=== PATIENT | female | born 1945 ===

== ENCOUNTER → 2021-12-24 10:57 | Outpatient (BNVA) | payer MEDICARE, SELFPAY | PROVIDERS: PCP Internal Medicine; Visit Provider Psychiatry & Neurology Neurology | DX: G47.9 Sleep disorder, unspecified (principal); G31.84 Mild cognitive impairment of uncertain or unknown etiology | CPT/HCPCS: 99212 ==

== ENCOUNTER → 2022-05-13 11:03 | Outpatient (BNVA) | payer MEDICARE, SELFPAY | PROVIDERS: PCP Internal Medicine; Visit Provider Psychiatry & Neurology Neurology | DX: G31.84 Mild cognitive impairment of uncertain or unknown etiology (principal); M54.50 Low back pain, unspecified; M53.3 Sacrococcygeal disorders, not elsewhere classified; G47.9 Sleep disorder, unspecified | CPT/HCPCS: 99212 ==

== ENCOUNTER → 2022-08-21 10:29 | Outpatient (BNVA) | payer MEDICARE, SELFPAY | PROVIDERS: PCP Internal Medicine; Visit Provider Psychiatry & Neurology Neurology | DX: G31.84 Mild cognitive impairment of uncertain or unknown etiology (principal); G47.33 Obstructive sleep apnea (adult) (pediatric); M54.50 Low back pain, unspecified; M53.3 Sacrococcygeal disorders, not elsewhere classified; R20.2 Paresthesia of skin; Z91.14 Patient's other noncompliance with medication regimen | CPT/HCPCS: 99212 ==

== ENCOUNTER 2023-05-20 12:39 | Outpatient (AMB) | payer MEDICARE, SELFPAY ==
[2023-05-20 12:41] VITALS: BP 140/82; PULSE 70; O2SAT 96; BMI 42.4
--- NOTE | 2023-05-20 12:41 | MHC.OFFVIS ---
Intake Vital Signs 05/20/23 12:41 Height 5 ft Weight 217 lb 2 oz BMI 42.4 BP 140/82 H Blood Pressure Location Rt brachial Position Sitting Pulse 70 Pulse Source Pulse Oximeter Pulse Oximetry (%) 96 Oxygen Delivery Method Room Air Intake Visit Reasons: 6m follow up dementia-confirmed Intake Note: Pt presents to the office today for a 6 month follow up for dementia. Pt states she is very upset about not being able to drive. Pt states she can carry conversations and answer questions when people ask. Her daughter states that sometimes she repeats herself and tends to misplace things. Allergies Sulfa (Sulfonamide Antibiotics) Allergy (Mild, Verified 05/20/23 12:45) Rash Medication List - Last Reconciled 05/20/23 by Harper Jerez MD amlodipine 5 mg PO DAILY atorvastatin 10 mg PO DAILY budesonide-formoterol 80-4.5 mcg/actuation (Symbicort) 2 puffs inhalation BID cholecalciferol (vitamin D3) (Vitamin D3) 25 mcg PO DAILY donepezil 10 mg PO QAM levalbuterol tartrate 45 mcg/actuation (Xopenex HFA) 2 inhalations inhalation Q6H levothyroxine 125 mcg PO QAM memantine 28 mg PO DAILY pantoprazole 20 mg PO DAILY sertraline 50 mg PO DAILY vibegron (Gemtesa) 75 mg PO DAILY PRN vitamin B complex (B Complex-Vitamin B12 tablet) 1 tab PO DAILY [wrist splint As directed NS] HPI HPI Comments History of Present Illness Details 78y/o female with mild dementia comes for follow up after 9 months. Her repeat neuropsych report showed stability She feels aricept has helped with her cognition. she participates in senior center activities, plays card games, reads newspaper etc. she has short term memory issues she is followed at [facility] sleep clinic and has restarted CPAP 1 month ago, Mood is good she sleeps better. Memory is stable. [facility] Medical History (Updated 05/20/23 @ 13:12 by Harper Jerez MD) Alzheimer's dementia Arthritis COPD (chronic obstructive pulmonary disease) Dementia FH: cholecystectomy HTN (hypertension) Thyroid disease Surgical History History of total right knee replacement Family History Maternal Grandmother Diabetes Father Heart attack Mother Dementia Social History Household Members Other:: Daughter Housing: House Alcohol intake: never Patient Tobacco Use Status: Never used Tobacco service: No Current occupational status: retired Physical Exam Vital Signs: Last Vital Signs Pulse 70 05/20/23 12:41 BP 140/82 H 05/20/23 12:41 Pulse Ox 96 05/20/23 12:41 Oxygen Delivery Method Room Air 05/20/23 12:41 BMI result Body Mass Index 42.4 Const General: cooperative, healthy appearing, comfortable and no acute distress Orientation/consciousness: patient oriented x3 Neuro General: patient oriented x3, tone normal, moves all extremities, no focal motor deficits and CN's II-XI intact bilaterally Psych Appearance: grossly normal Speech and movement: Normal speech and movement present Affect: normal affect Assessment & Plan Assessment & Plan (1) Dementia: Code(s): F03.90 - Unspecified dementia, unspecified severity, without behavioral disturbance, psychotic disturbance, mood disturbance, and anxiety (2) Paresthesia of both hands: Code(s): R20.2 - Paresthesia of skin Plan Donepezil 10mg qd Namenda 28mg XR qd Tylenol 325 mg tid Use hearing aides consistently continue cognitive exercise wrsit splint - sally F/U [facility] sleep. CPAP compliance stressed Coding Level of Care Code Est Pt Level 4 (55462) Diagnoses Dementia F03.90 Paresthesia of both hands R20.2
== END 2023-05-20 13:23 | disposition home or self-care (01) ==
PROVIDERS: Visit Provider Psychiatry & Neurology Neurology
DX: F03.90 Unspecified dementia, unspecified severity, without behavioral disturbance, psychotic disturbance, mood disturbance, and anxiety (principal); R20.2 Paresthesia of skin
CPT/HCPCS: 99214

== ENCOUNTER → 2023-05-20 12:39 | Outpatient (BNVA) | payer MEDICARE, SELFPAY | PROVIDERS: Visit Provider Psychiatry & Neurology Neurology | DX: F03.90 Unspecified dementia, unspecified severity, without behavioral disturbance, psychotic disturbance, mood disturbance, and anxiety (principal); R20.2 Paresthesia of skin | CPT/HCPCS: 99212 ==